=== PATIENT | male | born 1955 | race Caucasian/White ===

== ENCOUNTER → 2018-08-16 | Outpatient (CLI) | payer BC ==
[~2018-08-16] MED LIST: REGADENOSON 0.4 MG/5 ML DISP.SYRIN. IV ONE
--- NOTE | 2018-08-17 15:19 | PCVCIMAG ---
APPROVED REPORT Imaging Protocol: Rest Tc-99m/Stress Tc-99m 1 day Study performed: 08/16/2018 13:11:06 Indication: CAD, High Ca Score Stress Nurse: Nabila Shannon RN, Amy Rice RN [place] Tech:Alyssa Mary [facility] Ht: 6 ft 3 in Wt: 215 lbs BSA: 2.26 m2 HR: 67 bpm BP: 130/89 mmHg BMI: 26.87 Medical History Medical History: Hyperlipidemia, CAD Medications: ASA, Fish Oil, Atorvastatin Allergies: No known drug allergies Cardiac Risk Factors: Age, FHX of CAD Pretest Chest Pain Characteristics: No chest pain Exercise History: Physically active Resting Data Rest SPECT myocardial perfusion imaging was performed in supine position 45 minutes following the intravenous injection of 10.5 mCi of Tc-99m Sestamibi. Time of rest injection: 1230 Date: 08/16/2018 Administration Route: IV Administration Site: Right AC Exercise Stress At peak stress, the patient was injected intravenously with 33.1mCi of Tc-99m Sestamibi. Time of stress injection: 1400 Date: 08/16/2018 Administration Route: IV Administration Site: Right AC Patient continued to exercise for 1 minute(s). Gated Stress SPECT was performed 45 minutes after stress injection. The images were gated to evaluate regional wall motion and calculate left ventricular ejection fraction. Stress Test Details Stress Test: Exercise stress testing was performed using a Daniel protocol. HRMax Heart Rate (APMHR): 159 bpm Resting HR: 67 bpmTarget HR (85% APMHR): 135 bpm Max HR Achieved: 157 bpm % of APMHR: 98 Recovery HR: 88 bpm HR response to stress: Normal HR response to stress BP Resting BP: 130/89 mmHg Max BP: 202/89 mmHg Recovery BP: 171/87 mmHg ECG Resting ECG: Sinus Rhythm Stress ECG: Sinus Tachycardia Recovery ECG: Sinus Rhythm Clinical Reason for Termination: Fatigue, Dyspnea Stress Symptoms: None Exercise duration: 13 min 01 sec Exercise capacity: 17.2 METs Overall Exercise Capacity for Age: Excellent Stress ECG Conclusion 1. Subjectively negative for ischemia 2. Echocardiographic negative for ischemia 3. Satisfactory functional capacity Study Data Post stress, the left ventricular ejection was 51%.. SSS: 11 SRS: 7 SDS: 5 TID = 0.91. Perfusion There is a large area of severely reduced uptake in the entire segment of the inferior wall which is seen on the stress images as well as the resting images. This area thickens and moves normally and is most consistent with attenuation artifact. Wall Motion Normal left ventricular wall motion. Nuclear Conclusion ECG Findings: negative for ischemia Clinical Findings: negative for ischemia Nuclear Findings: negative for ischemia Exercise Capacity: normal Left Ventricular Function: normal 1. Low risk study <Conclusion> 1. Subjectively negative for ischemia 2. Echocardiographic negative for ischemia 3. Satisfactory functional capacity
== END | disposition home or self-care (01) ==
LOC: PCVCIMAG 13:29
PROVIDERS: ATTEND Internal Medicine
DX: I25.119 Atherosclerotic heart disease of native coronary artery with unspecified angina pectoris (principal); E78.5 Hyperlipidemia, unspecified; R93.1 Abnormal findings on diagnostic imaging of heart and coronary circulation
CPT/HCPCS: 78452; 93017; A9500; J2785